=== PATIENT | female | born 1980 | race Hispanic/Latino ===

== ENCOUNTER → 2018-01-19 | Outpatient (CLI) | payer OTHER ==
--- NOTE | 2018-01-19 15:47 | Diagnostic Imaging Report ---
PROCEDURE: Frontal and lateral views of the chest. COMPARISON: None. INDICATIONS: cough FINDINGS: Lines/tubes: None. Lungs: The lungs are well inflated and clear. There is no evidence of pneumonia or pulmonary edema. Tiny right lung field nodular density, probably a calcified granuloma. Pleura: There is no pleural effusion or pneumothorax. Heart and mediastinum: The heart and the mediastinum are normal. Bones: No acute bony abnormality. IMPRESSION: 1. No acute cardiopulmonary disease. Dictated by: Ming Dumas M.D. on 01/19/2018 at 15:46 Electronically approved by: Ming Dumas M.D. on 01/19/2018 at 15:46
== END ==
LOC: RAD 15:07
PROVIDERS: ATTEND Family Medicine
DX: R51 Headache (principal); R05 Cough
CPT/HCPCS: 71046

== ENCOUNTER → 2018-01-24 | Outpatient (CLI) | payer OTHER ==
--- NOTE | 2018-01-24 13:02 | Diagnostic Imaging Report ---
EXAMINATION: MRI of the brain without contrast. HISTORY: Chronic headaches, left-sided numbness for the last 3 weeks COMPARISON: None. TECHNIQUE: Sagittal T2; axial DWI, T2, FLAIR, T1-IR, T2 gradient echo; coronal FLAIR. IMAGE QUALITY: Adequate. FINDINGS: Parenchyma: 1. Single 2 mm hyperintense focus in the left inferior frontal white matter is nonspecific and may be migraine-related, unlikely to explain the patient's symptoms. Otherwise no areas of abnormal signal intensity in the brain parenchyma . 2. No mass, hemorrhage, acute or chronic infarcts. Skull: Unremarkable. Vessels: Expected flow voids present in the major arteries and dural sinuses. Extra-axial spaces: No abnormal signal intensity or mass effect. Brain volume: Within normal limits for age. Ventricles: No hydrocephalus or displacement. Foramen magnum: Unremarkable. Sella: Unremarkable. Paranasal / mastoid sinuses: No significant inflammatory disease. IMPRESSION: No intracranial abnormalities to explain the patient's symptoms. Signed by: Dr. Neema Marcelo M.D. on 01/24/2018 12:58 PM
== END ==
LOC: MRI 07:22
PROVIDERS: ATTEND Family Medicine
DX: R51 Headache (principal); R05 Cough
CPT/HCPCS: 70551